=== PATIENT | female | born 1995 | race Caucasian/White ===

== ENCOUNTER 2022-05-28 13:56 | Observation (INO) | payer OTHER ==
[~2022-05-28] VITALS: Ht 152.4 cm; Wt 60.8 kg
[2022-05-28 15:50] LABS: BASOPHILS % 0.3 % (0.0-2.0); EOSINOPHILS % 0.5 % (0.0-5.0); HEMATOCRIT. 38.7 % (36.0-48.0); HEMOGLOBIN. 12.8 g/dL (12.0-16.0); LYMPHOCYTES % 20.8 % (20.0-50.0); MEAN CORPUSCULAR HEMOGLOBIN 27.1 pg (28.0-32.0); MEAN CORPUSCULAR VOLUME 82.2 fL (81.0-99.0); MEAN PLATELET VOLUME 8.8 fl (7.4-10.4); MONOCYTES % 9.8 % (2.0-8.0); NEUTROPHILS % 68.6 % (40.0-76.0); PLATELET 224 x1000/uL (130-400); RED BLOOD CELL COUNT 4.71 mill/uL (4.2-5.4); RED CELL DISTRIBUTION WIDTH 17.8 % (11.6-14.6)
[2022-05-28 15:51] LABS: CLARITY URINE CLEAR (CLEAR); COLOR URINE YELLOW (YELLOW); KETONES URINE NEGATIVE (NEGATIVE); LEUKOCYTE ESTERASE URINE NEGATIVE (NEGATIVE); NITRITE URINE NEGATIVE (NEGATIVE); OCCULT BLOOD URINE NEGATIVE (NEGATIVE); PH URINE 6.5 (4.5-8.0); PROTEIN URINE TRACE (NEGATIVE); SPECIFIC GRAVITY URINE 1.015 (1.005-1.030); UROBILINOGEN URINE 0.2 E.U./dL (0.2-1.0)
[2022-05-28 15:54] LABS: CHLORIDE 109 mEq/L (98-107)
[2022-05-28 16:00] LABS: D-DIMER 0.84 mg/L FEU (<0.50); INR 0.9; PARTIAL THROMBOPLASTIN TIME 27.6 sec (23.4-31.0); PROTHROMBIN TIME 9.6 sec (9.6-11.0)
== END 2022-05-28 16:20 | disposition home or self-care (01) ==
LOC: 8 EST LDRP 13:56
PROVIDERS: ADMIT Obstetrics & Gynecology; ATTEND Obstetrics & Gynecology
DX: O26.893 Other specified pregnancy related conditions, third trimester (principal); R03.0 Elevated blood-pressure reading, without diagnosis of hypertension; R51.9 Headache, unspecified; O24.410 Gestational diabetes mellitus in pregnancy, diet controlled; O36.8130 Decreased fetal movements, third trimester, not applicable or unspecified; Z3A.33 33 weeks gestation of pregnancy; Z98.891 History of uterine scar from previous surgery
CPT/HCPCS: 36415; 59025; 80053; 81003; 84550; 85025; 85379; 85384; 99281; G0378

== ENCOUNTER 2022-05-31 14:51 | Observation (INO) | payer OTHER ==
[~2022-05-31] VITALS: Ht 152.4 cm; Wt 60.3 kg
[2022-05-31] MEDS ORDERED: BETAMETHASONE ACET/BETAMET 30 MG/5 ML VIAL IM ONE (15:30)
== END 2022-05-31 16:00 | disposition home or self-care (01) ==
LOC: 8 EST LDRP 14:51
PROVIDERS: ADMIT Obstetrics & Gynecology; ATTEND Obstetrics & Gynecology
DX: Z34.93 Encounter for supervision of normal pregnancy, unspecified, third trimester (principal); Z3A.34 34 weeks gestation of pregnancy; Z79.899 Other long term (current) drug therapy
CPT/HCPCS: 59025; 96372; G0378; G0379; J0702

== ENCOUNTER 2022-06-01 15:03 | Observation (INO) | payer OTHER, MEDICAID ==
[~2022-06-01] VITALS: Ht 152.4 cm; Wt 60.3 kg
[2022-06-01] MEDS ORDERED: BETAMETHASONE ACET/BETAMET 30 MG/5 ML VIAL IM NR (15:30)
== END 2022-06-01 15:58 | disposition home or self-care (01) ==
LOC: 8 EST A/PP 15:03
PROVIDERS: ADMIT Obstetrics & Gynecology; ATTEND Obstetrics & Gynecology
DX: Z34.93 Encounter for supervision of normal pregnancy, unspecified, third trimester (principal); Z3A.34 34 weeks gestation of pregnancy
CPT/HCPCS: 59025; 96372; G0378; G0379; J0702

== ENCOUNTER 2022-06-11 12:43 | Observation (INO) | payer OTHER, MEDICAID ==
[~2022-06-11] VITALS: Ht 152.4 cm; Wt 60.8 kg
[2022-06-11 14:39] LABS: CLARITY URINE CLEAR (CLEAR); COLOR URINE YELLOW (YELLOW); KETONES URINE NEGATIVE (NEGATIVE); LEUKOCYTE ESTERASE URINE NEGATIVE (NEGATIVE); NITRITE URINE NEGATIVE (NEGATIVE); OCCULT BLOOD URINE NEGATIVE (NEGATIVE); PROTEIN URINE TRACE (NEGATIVE); SPECIFIC GRAVITY URINE 1.007 (1.005-1.030); UROBILINOGEN URINE 0.2 E.U./dL (0.2-1.0)
[2022-06-11 14:41] LABS: BASOPHILS % 0.6 % (0.0-2.0); EOSINOPHILS % 0.7 % (0.0-5.0); HEMATOCRIT. 39.7 % (36.0-48.0); HEMOGLOBIN. 12.9 g/dL (12.0-16.0); LYMPHOCYTES % 18.8 % (20.0-50.0); MEAN CORPUSCULAR HEMOGLOBIN 27.3 pg (28.0-32.0); MEAN CORPUSCULAR VOLUME 84.1 fL (81.0-99.0); MEAN PLATELET VOLUME 8.6 fl (7.4-10.4); MONOCYTES % 8.2 % (2.0-8.0); NEUTROPHILS % 71.7 % (40.0-76.0); PLATELET 203 x1000/uL (130-400); RED BLOOD CELL COUNT 4.73 mill/uL (4.2-5.4); RED CELL DISTRIBUTION WIDTH 17.9 % (11.6-14.6)
[2022-06-11 14:48] LABS: CHLORIDE 108 mEq/L (98-107)
[2022-06-11 14:49] LABS: D-DIMER 0.8 mg/L FEU (<0.50); INR 0.9; PARTIAL THROMBOPLASTIN TIME 30.6 sec (23.4-31.0); PROTHROMBIN TIME 9.8 sec (9.6-11.0)
== END 2022-06-11 15:30 | disposition home or self-care (01) ==
LOC: 8 EST LDRP 12:43
PROVIDERS: ADMIT Obstetrics & Gynecology; ATTEND Obstetrics & Gynecology
DX: O24.419 Gestational diabetes mellitus in pregnancy, unspecified control (principal); Z3A.35 35 weeks gestation of pregnancy; Z79.899 Other long term (current) drug therapy
CPT/HCPCS: 36415; 59025; 76815; 76818; 80053; 81003; 84550; 85025; 85379; 85384; 85610; 85730; G0378; 99281; G0379

== ENCOUNTER 2022-06-12 13:12 | Inpatient (IN) | payer OTHER, MEDICAID ==
[~2022-06-12] VITALS: Ht 154.9 cm; Wt 60.8 kg
[2022-06-12] MEDS ORDERED: NALOXONE HCL 0.4 MG/ML 1ML VIAL IM PRN (15:00)
[2022-06-12] MEDS ORDERED: OXYTOCIN 30 UNITS/500ML NS PMX 500 ML IV SCH (15:00)
[2022-06-12] MEDS: LACTATED RINGERS 1,000 ML IV SCH ×2 (16:39→20:56)
[2022-06-12 16:58] LABS: BASOPHILS % 0.2 % (0.0-2.0); EOSINOPHILS % 0.5 % (0.0-5.0); HEMOGLOBIN. 12.9 g/dL (12.0-16.0); LYMPHOCYTES % 14.7 % (20.0-50.0); MEAN CORPUSCULAR VOLUME 83.4 fL (81.0-99.0); MEAN PLATELET VOLUME 8.6 fl (7.4-10.4); MONOCYTES % 9.1 % (2.0-8.0); NEUTROPHILS % 75.5 % (40.0-76.0); PLATELET 218 x1000/uL (130-400)
[2022-06-12 17:16] LABS: CHLORIDE 109 mEq/L (98-107)
[2022-06-12 17:18] LABS: INR 0.9; PARTIAL THROMBOPLASTIN TIME 28.4 sec (23.4-31.0); PROTHROMBIN TIME 9.4 sec (9.6-11.0)
[2022-06-12 17:22] LABS: CLARITY URINE CLEAR (CLEAR); COLOR URINE YELLOW (YELLOW); KETONES URINE NEGATIVE (NEGATIVE); LEUKOCYTE ESTERASE URINE NEGATIVE (NEGATIVE); NITRITE URINE NEGATIVE (NEGATIVE); OCCULT BLOOD URINE NEGATIVE (NEGATIVE); PROTEIN URINE NEGATIVE (NEGATIVE); SPECIFIC GRAVITY URINE 1.007 (1.005-1.030); UROBILINOGEN URINE 0.2 E.U./dL (0.2-1.0)
[2022-06-12 17:39] LABS: *AMPHETAMINES SCREEN URINE NEGATIVE (NEGATIVE); *BARBITURATES SCREEN URINE NEGATIVE (NEGATIVE); *BENZODIAZEPINES SCREEN URINE NEGATIVE (NEGATIVE); *COCAINE SCREEN URINE NEGATIVE (NEGATIVE); CANNABINOID URINE SCREEN NEGATIVE (NEGATIVE); METHADONE URINE SCREEN NEGATIVE (NEGATIVE); OPIATES URINE SCREEN NEGATIVE (NEGATIVE); PHENCYCLIDINE URINE SCREEN NEGATIVE (NEGATIVE)
[2022-06-12 17:44] LABS: HEPATITIS B SURFACE ANTIGEN NEGATIVE
[2022-06-13] MEDS: GUAIFENESIN 200MG/10ML SUGAR FREE UDC PO PRN ×4 (03:14→23:50)
[2022-06-13] MEDS: LACTATED RINGERS 1,000 ML IV SCH ×3 (05:10→21:37)
[2022-06-13] MEDS: LABETALOL HCL 200MG TABLET PO SCH (21:19)
[2022-06-14] MEDS: GUAIFENESIN 200MG/10ML SUGAR FREE UDC PO PRN ×4 (04:36→20:56)
[2022-06-14] MEDS: LACTATED RINGERS 1,000 ML IV SCH (05:39)
[2022-06-14 07:10] LABS: HIV SCREEN 4G Non Reactive (Non Reactive)
[2022-06-14] MEDS ORDERED: PRENATAL VIT/FE FUMARATE/FA TABLET PO SCH (09:00)
[2022-06-14] MEDS: LABETALOL HCL 200MG TABLET PO SCH ×2 (09:02→20:55)
[2022-06-14] MEDS ORDERED: FENTANYL CITRATE/PF 50MCG/ML 5ML VIAL ONE (10:23)
[2022-06-14] MEDS ORDERED: MORPHINE SULFATE/PF 1MG/ML 10ML AMP ONE (10:24)
[2022-06-14] MEDS ORDERED: ONDANSETRON HCL 4MG/2ML INJ IV PRN ×3 (11:15→11:45)
[2022-06-14] MEDS ORDERED: BUTORPHANOL TARTRATE 2 MG/ML VIAL IV PRN (11:15)
[2022-06-14] MEDS ORDERED: MEPERIDINE HCL/PF 25MG/ML CPJ IV PRN (11:15)
[2022-06-14] MEDS ORDERED: DIPHENHYDRAMINE 50MG/ML VIAL IV PRN (11:15)
[2022-06-14] MEDS ORDERED: HYDROMORPHONE HCL/PF 2MG/ML CPJ IV PRN ×2 (11:15)
[2022-06-14] MEDS ORDERED: LABETALOL 5MG/ML SYR 20 MG/4 ML SYRINGE IV PRN (11:15)
[2022-06-14] MEDS ORDERED: MIDAZOLAM HCL 2 MG/2 ML VIAL ONE (11:16)
[2022-06-14] MEDS ORDERED: RHO(D) IMMUNE GLOBULIN 300 MCG/SYR IM PRN (11:45)
[2022-06-14] MEDS ORDERED: OXYTOCIN 30 UNITS/500ML NS PMX 500 ML IV SCH (11:45)
[2022-06-14] MEDS ORDERED: IBUPROFEN 400MG TABLET PO PRN (11:45)
[2022-06-14] MEDS ORDERED: HYDROCODONE/ACETAMINOPHEN 5/325MG TABLET PO PRN (11:45)
[2022-06-14] MEDS ORDERED: LANOLIN OINT 7GM TUBE TOP PRN (11:45)
[2022-06-14] MEDS ORDERED: NALOXONE HCL 0.4MG/ML VIAL IV PRN (12:00)
[2022-06-14] MEDS: KETOROLAC 30MG/ML VIAL IV PRN ×2 (14:04→23:56)
[2022-06-14 15:00] VITALS: BP 127/80
[2022-06-14 16:00] VITALS: BP 131/82
[2022-06-14] MEDS: DOCUSATE SODIUM 100MG CAPSULE PO SCH (20:55)
[2022-06-14] MEDS ORDERED: DIPHENHYDRAMINE 25MG CAPSULE PO PRN (21:00)
[2022-06-14 22:00] VITALS: BP 123/72
[2022-06-15] MEDS: GUAIFENESIN 200MG/10ML SUGAR FREE UDC PO PRN ×5 (02:41→22:05)
[2022-06-15] MEDS: LACTATED RINGERS 1,000 ML IV SCH (02:42)
[2022-06-15 05:27] VITALS: BP 130/79
[2022-06-15 06:00] LABS: BASOPHILS % 0.3 % (0.0-2.0); HEMATOCRIT. 25.9 % (36.0-48.0); HEMOGLOBIN. 8.6 g/dL (12.0-16.0); LYMPHOCYTES % 14.7 % (20.0-50.0); MEAN CORPUSCULAR HEMOGLOBIN 27.7 pg (28.0-32.0); MEAN CORPUSCULAR VOLUME 83.5 fL (81.0-99.0); MEAN PLATELET VOLUME 7.9 fl (7.4-10.4); MONOCYTES % 4.3 % (2.0-8.0); NEUTROPHILS % 79.7 % (40.0-76.0); PLATELET 147 x1000/uL (130-400)
[2022-06-15 07:30] VITALS: BP 117/61
[2022-06-15] MEDS: KETOROLAC 30MG/ML VIAL IV PRN (07:35)
[2022-06-15] MEDS: LABETALOL HCL 200MG TABLET PO SCH ×2 (09:29→21:54)
[2022-06-15 16:30] VITALS: BP 135/82
[2022-06-15] MEDS: HYDROCODONE/ACETAMINOPHEN 5/325MG TABLET PO PRN ×2 (18:39→22:04)
[2022-06-15] MEDS: FAMOTIDINE 20MG TABLET PO SCH (21:53)
[2022-06-15] MEDS: DOCUSATE SODIUM 100MG CAPSULE PO SCH (21:54)
[2022-06-15 22:00] VITALS: BP 131/76
[2022-06-16] MEDS: GUAIFENESIN 200MG/10ML SUGAR FREE UDC PO PRN ×4 (04:44→21:49)
[2022-06-16 06:00] VITALS: BP 128/62
[2022-06-16] MEDS: HYDROCODONE/ACETAMINOPHEN 5/325MG TABLET PO PRN ×3 (08:49→21:50)
[2022-06-16 08:50] VITALS: BP 126/75
[2022-06-16] MEDS: LABETALOL HCL 200MG TABLET PO SCH ×2 (08:50→21:50)
[2022-06-16] MEDS: PRENATAL VIT/FE FUMARATE/FA TABLET PO SCH (08:50)
[2022-06-16] MEDS: ASPIRIN 81MG TABLET PO SCH (08:50)
[2022-06-16] MEDS: FAMOTIDINE 20MG TABLET PO SCH ×2 (08:50→21:50)
[2022-06-16 16:00] VITALS: BP 121/73
[2022-06-16 20:00] VITALS: BP 134/79
[2022-06-16] MEDS: DOCUSATE SODIUM 100MG CAPSULE PO SCH (21:50)
[2022-06-17] MEDS: GUAIFENESIN 200MG/10ML SUGAR FREE UDC PO PRN ×2 (01:59→08:48)
[2022-06-17 04:00] VITALS: BP 136/80
[2022-06-17 08:00] VITALS: BP 144/83
[2022-06-17] MEDS: PRENATAL VIT/FE FUMARATE/FA TABLET PO SCH (08:43)
[2022-06-17] MEDS: ASPIRIN 81MG TABLET PO SCH (08:43)
[2022-06-17] MEDS: FAMOTIDINE 20MG TABLET PO SCH (08:44)
[2022-06-17] MEDS: LABETALOL HCL 200MG TABLET PO SCH (08:45)
[2022-06-17 10:48] VITALS: BP 144/83
[2022-06-17] MEDS: HYDROCODONE/ACETAMINOPHEN 5/325MG TABLET PO PRN (10:48)
== END 2022-06-17 12:59 | disposition home or self-care (01) | DRG 786 ==
LOC: 8 EST LDRP 13:12 → OBSVTOIN 13:12 → 8 EST LDRP 18:30 → 8EST 06-14 15:00
PROVIDERS: ADMIT Obstetrics & Gynecology; ATTEND Obstetrics & Gynecology
PROC: 10D00Z1 Extraction of Products of Conception, Low, Open Approach (ICD-10-PCS; principal; 2022-06-14)
PROC: 10907ZC Drainage of Amniotic Fluid, Therapeutic from Products of Conception, Via Natural or Artificial Opening (ICD-10-PCS; 2022-06-14)
DX: O41.03X0 Oligohydramnios, third trimester, not applicable or unspecified (principal); O60.14X0 Preterm labor third trimester with preterm delivery third trimester, not applicable or unspecified; Z20.822 Contact with and (suspected) exposure to COVID-19; K21.9 Gastro-esophageal reflux disease without esophagitis; O24.429 Gestational diabetes mellitus in childbirth, unspecified control; O99.02 Anemia complicating childbirth; O13.4 Gestational [pregnancy-induced] hypertension without significant proteinuria, complicating childbirth; O34.211 Maternal care for low transverse scar from previous cesarean delivery; O69.81X0 Labor and delivery complicated by cord around neck, without compression, not applicable or unspecified; O36.5930 Maternal care for other known or suspected poor fetal growth, third trimester, not applicable or unspecified; Z3A.35 35 weeks gestation of pregnancy; Z37.0 Single live birth
CPT/HCPCS: 36415; 76805; 76815; 76818; 80053; 80305; 80359; 81003; 84550; 85025; 86592; 86762; 86850; 86900; 87340; 87389; 87426; 88307; 99281; G0378; J1885; J2250; J2274; J2405; J3010; J7120; A4315; J2590